=== PATIENT | female | born 1960 | race Caucasian/White ===

== ENCOUNTER 2018-05-29 09:52 | Emergency (ER) | payer OTHER, BC ==
[~2018-05-29] VITALS: Ht 152.4 cm; Wt 97.7 kg
[2018-05-29 10:00] VITALS: BP 134/84; PULSE 85; TEMP 99
== END 2018-05-29 11:42 | disposition home or self-care (01) ==
LOC: COL.ER 09:52
DX: S13.4XXA Sprain of ligaments of cervical spine, initial encounter (principal); Z87.891 Personal history of nicotine dependence; Z88.2 Allergy status to sulfonamides; Z98.890 Other specified postprocedural states; Z90.710 Acquired absence of both cervix and uterus; V43.52XA Car driver injured in collision with other type car in traffic accident, initial encounter